=== PATIENT | female | born 1970 | race Caucasian/White ===

== ENCOUNTER 2022-04-13 08:08 | Outpatient (CLI) | payer BC, OTHER | END 2022-04-13 08:09 | disposition home or self-care (01) | LOC: CSHULT 08:08 | PROVIDERS: ATTEND Student in an Organized Health Care Education/Training Program | DX: N83.10 Corpus luteum cyst of ovary, unspecified side (principal); R92.8 Other abnormal and inconclusive findings on diagnostic imaging of breast; Z80.3 Family history of malignant neoplasm of breast | CPT/HCPCS: G0279 ==

== ENCOUNTER → 2022-04-17 | Day surgery (SDC) | payer OTHER | LOC: CSHULT 12:51 | PROVIDERS: ATTEND Student in an Organized Health Care Education/Training Program | PROC: 0H9T0ZX Drainage of Right Breast, Open Approach, Diagnostic (ICD-10-PCS; principal; 2022-04-17) | DX: N63.15 Unspecified lump in the right breast, overlapping quadrants (principal) | CPT/HCPCS: 19083; 88305; 88342 ==

== ENCOUNTER 2024-10-28 08:27 | Outpatient (CLI) | payer OTHER | END 2024-10-28 08:28 | disposition home or self-care (01) | LOC: CSHULT 08:27 | PROVIDERS: ATTEND Student in an Organized Health Care Education/Training Program | DX: R19.00 Intra-abdominal and pelvic swelling, mass and lump, unspecified site (principal) | CPT/HCPCS: 76775 ==